=== PATIENT | female | born 1955 | race Caucasian/White ===

== ENCOUNTER → 2017-06-29 | Outpatient (CLI) | payer OTHER | LOC: BMCIMAGING 14:27 | PROVIDERS: ATTEND Family Medicine | DX: Z12.31 Encounter for screening mammogram for malignant neoplasm of breast (principal); Z80.3 Family history of malignant neoplasm of breast | CPT/HCPCS: G0202 ==

== ENCOUNTER → 2017-10-28 | Outpatient (CLI) | payer OTHER | LOC: BMCIMAGING 12:43 | PROVIDERS: ATTEND Neurological Surgery | DX: M21.752 Unequal limb length (acquired), left femur (principal); M16.11 Unilateral primary osteoarthritis, right hip; M51.36 Other intervertebral disc degeneration, lumbar region; M51.37 Other intervertebral disc degeneration, lumbosacral region; M46.96 Unspecified inflammatory spondylopathy, lumbar region; M46.97 Unspecified inflammatory spondylopathy, lumbosacral region ==

== ENCOUNTER → 2018-04-07 | Outpatient (CLI) | payer OTHER | LOC: BMCIMAGING 12:53 | PROVIDERS: ATTEND Family Medicine | DX: Z12.31 Encounter for screening mammogram for malignant neoplasm of breast (principal); C53.9 Malignant neoplasm of cervix uteri, unspecified; Z80.3 Family history of malignant neoplasm of breast ==

== ENCOUNTER → 2018-04-28 | Outpatient (CLI) | payer OTHER | LOC: BMCIMAGING 13:16 | PROVIDERS: ATTEND Family Medicine | DX: Z13.820 Encounter for screening for osteoporosis (principal); M81.0 Age-related osteoporosis without current pathological fracture ==

== ENCOUNTER → 2018-06-09 | Outpatient (CLI) | payer OTHER | LOC: BMCIMAGING 13:38 | PROVIDERS: ATTEND Physician Assistant | DX: M17.12 Unilateral primary osteoarthritis, left knee (principal); M25.462 Effusion, left knee ==

== ENCOUNTER → 2018-07-12 | Outpatient (CLI) | payer OTHER | LOC: FIMAGING 11:26 | PROVIDERS: ATTEND Orthopaedic Surgery | DX: Z01.818 Encounter for other preprocedural examination (principal); M17.12 Unilateral primary osteoarthritis, left knee ==

== ENCOUNTER 2018-08-07 09:13 | Observation (INO) | payer OTHER ==
--- NOTE | 2018-08-07 06:37 | PDHPUP ---
History & Physical Update H&P update statement: This history and physical update is based on an assessment of the patient which was completed after admission or registration (within 24 hours), but prior to the surgery/procedure. H&P update: no change in patient's condition since H&P completed
--- NOTE | 2018-08-07 06:37 | PDIAF ---
- Diagnosis Diagnosis: left knee djd Code Status: Full Code - Medication Management Discharge Medications: Medications to Continue on Transfer Acyclovir [Zovirax 200 mg (*)] 200 mg PO Q4H PRN 06/30/18 [Last Taken Unknown] Alendronate Sodium [Fosamax 70 MG (*)] 70 mg PO WE@0700 06/30/18 [Last Taken Unknown] Atorvastatin Calcium [Lipitor 20 mg (*)] 20 mg PO DAILY 06/30/18 [Last Taken Unknown] Bupropion HCl [Bupropion HCl Sr] 150 mg PO BID 06/30/18 [Last Taken Unknown] Cholecalciferol (Vitamin D3) [Vitamin D3] 2,000 unit PO DAILY 06/30/18 [Last Taken Unknown] Gabapentin [Neurontin 300 MG (*)] 300 mg PO TID 06/30/18 [Last Taken Unknown] Herbals/Supplements -Info Only 1 ea PO DAILY 06/30/18 [Last Taken Unknown] Multivitamins [Multivitamin (*)] 1 each PO DAILY 06/30/18 [Last Taken Unknown] Naproxen Sodium [Aleve 220 MG (*)] 440 mg PO DAILY PRN 06/30/18 [Last Taken Unknown] Vitamin B Complex [Vitamin B Complex (OTC)] 1 each PO DAILY 06/30/18 [Last Taken Unknown] Discharge Medications: Refer to the Discharge Home Medication list for PRN reason. - Orders Services needed: Home Care, Physical Therapy Home Care Face to Face: I certify that this patient was under my care and that I had the required nirt-aj-cfyd encounter meeting the encounter requirements on the discharge day. My findings support the fact that the patient is homebound as defined in Home Care Face to Face Continued: CMS Chapter 7 Medicare Benefits Manual 30.1.1 , The condition of the patient is such that there exists a normal inability to leave home and consequently, leaving home would require a considerable and taxing effort. Diet Recommendation: no restrictions on diet Diet Texture: Regular Texture Diet Additional Instructions: TOTAL JOINT ARTHROPLASTY DISCHARGE INSTRUCTIONS 1. Your surgeon follows the [facility] protocol for reducing your risk of DVT (blood clots) following surgery. Medication will be ordered to prevent blood clots. A sudden increase in calf pain and/or swelling could indicate a blood clot in your leg. If this occurs, please call your surgeon or his/her graphic design assistant. An ultrasound of the leg may be necessary to diagnose a blood clot. If you have conditions that make you a higher risk for blood clots, your surgeon may use more aggressive ways to prevent them. Notify your surgeon if you think you are a high risk for blood clots. 2. Wear your white surgical stockings (DEONNA hose) for 2 weeks. This decreases your swelling and may help prevent blood clots. It is ok to remove DEONNA hose at night time to give your legs a break. 3. Swelling and bruising in the surgical leg is common. If you feel that it is excessive, please notify your surgeon. 4. Elevate your surgical leg with the ankle above the hip several times every day. Please keep the leg straight when you elevate by putting pillows under your foot. Do not put pillows under your knee. This will make being able to fully straighten more difficult. This is uncomfortable, but try to do it as much as possible. 5. For total knee replacements use compressive wrap on your knee for 3-5 days after surgery, then you can discontinue it. 6. Use a walker or crutches for 1-2 weeks. Progress your weight-bearing as tolerated. You may start to use a cane when you feel stable and safe. 7. You will receive physical therapy instructions in the hospital. Continue those exercises at home. There are additional exercises in the total joint booklet you were given before surgery. Outpatient physical therapy will begin 7- 10 days after surgery. Please schedule this in advance. 8. Use ice on your knee at least 3-5 times every day for 30 minutes. This helps reduce pain and swelling. Also use it at night before falling asleep. 9. Leave your surgical dressing in place for 2 weeks. Your dressing is water resistant, but not waterproof. Cover it with Saran Wrap or Qongg-n-Dwgd before showering. You may shower as soon as you feel safe entering a shower. If you notice bleeding from your incision 2 or 3 days after surgery, please notify your surgeon. 10. Due to narcotics, decreased activity and altered diet, most patients experience constipation after surgery. Use vraz-wku-bcznzij stool softeners while you are on narcotics. 11. You may drive a car when you are comfortable bearing weight, have good muscular control of your leg and are off narcotics. This usually occurs 2-4 weeks after surgery, depending on which leg was operated on. 12. If there are questions not addressed here, please refer the [facility] book given for more information. If you still have questions, please contact your surgeon s office. 13. If you have a life-threatening emergency, please call 911 and go to the emergency room immediately. For non-life threatening emergencies, please call your physicians office for advice before going to the emergency room. - Follow Up Care Current Providers and Referrals: MADDIE MAYO [Primary Care Provider] - Emmett Gamez MD [Medical Doctor] -
[~2018-08-07 09:13] MED LIST: ROPIVACAINE 0.2% 80 MG, EPINEPHrine 0.2 MG, KETOROLAC TROMETHAMINE 30 MG, morphINE 10 M... IU ONE; TRANEXAMIC ACID 1,000 MG in NS 100 ML IV ONE; VANCOMYCIN 1 GM in NS 250 ML IV ONE; VANCOMYCIN HCL/NORMAL SALINE 250 ML IV ONE; VANCOMYCIN PHARMACY TO DOSE MISC ONE
[2018-08-07] MEDS ORDERED: FAMOTIDINE 20 MG TAB PO ONE (09:21)
[2018-08-07] MEDS ORDERED: ACETAMINOPHEN 325 MG TAB PO ONE (09:21)
[2018-08-07] MEDS ORDERED: LIDOCAINE 1% 2 ML INJ ID PRN (09:22)
[2018-08-07] MEDS ORDERED: LR 1,000 ML IV ONE (09:22)
--- NOTE | 2018-08-07 10:17 | POSTANESTH ---
Post Anesthetic Evaluation Cardiovascular Status: Normal, Stable Respiratory Status: Normal, Stable Level of Consciousness/Mental Status: Can Participate in Eval, Alert and Oriented Pain Control: Adequate, Prn Tx Ordered Nausea/Vomiting Control: Adequate, Prn Tx Ordered Complications Possibly Related to Anesthesia: None Noted (L AC block placed on arrival to PACU PSR for POPC. U/S guidance utilized.)
--- NOTE | 2018-08-07 10:20 | PDANEPAE ---
ANE History of Present Illness 63 yo female with L knee OA for L TKA. 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 basal cell CA removed from nose, 2016 - Congenital Disorder History Hx Congenital Disorders: No - GI History Hx Gastrointestinal Disorders: No - Chronic Pain History Chronic Pain: Yes (back pain due to curvture, gabapentin helps) - Surgical History Prior Surgeries: Right & left ankle surgeries, 1997. ACL & meniscus repair on Left, 2002. Hysterectomy w/bladder tuck, 2005 ANE Review of Systems Review of systems is: negative Review of Systems: - Exercise capacity METS (RN): 4 METS ANE Patient History - Allergies Allergies/Adverse Reactions: Penicillins Allergy (Verified 07/04/18 14:35) SEIZURE A KID - Home Medications Home Medications: Acyclovir [Zovirax 200 mg (*)] 200 mg PO Q4H PRN 06/30/18 [Last Taken 1 Day Ago ~08/06/18] Alendronate Sodium [Fosamax 70 MG (*)] 70 mg PO WE@0700 06/30/18 [Last Taken ] Atorvastatin Calcium [Lipitor 20 mg (*)] 20 mg PO DAILY 06/30/18 [Last Taken 1 Day Ago ~08/06/18] Bupropion HCl [Bupropion HCl Sr] 150 mg PO BID 06/30/18 [Last Taken 08/07/18 04: 00] Cholecalciferol (Vitamin D3) [Vitamin D3] 2,000 unit PO DAILY 06/30/18 [Last Taken 2 Weeks Ago ~07/24/18] Gabapentin [Neurontin 300 MG (*)] 300 mg PO TID 06/30/18 [Last Taken 08/07/18 04 :00] Herbals/Supplements -Info Only 1 ea PO DAILY 06/30/18 [Last Taken 2 Weeks Ago ~ 07/24/18] Multivitamins [Multivitamin (*)] 1 each PO DAILY 06/30/18 [Last Taken 2 Weeks Ago ~07/24/18] Naproxen Sodium [Aleve 220 MG (*)] 440 mg PO DAILY PRN 06/30/18 [Last Taken 1 Week Ago ~07/31/18] Vitamin B Complex [Vitamin B Complex (OTC)] 1 each PO DAILY 06/30/18 [Last Taken 2 Weeks Ago ~07/24/18] - NPO status NPO Since - Liquids (Date): 08/06/18 NPO Since - Liquids (Time): 04:00 NPO Since - Solids (Date): 08/06/18 NPO Since - Solids (Time): 16:00 - Anes Hx Anes Hx: post operative nausea Hx Anesthesia Complications (with details): mild nausea - Smoking Hx Smoking Status: Former smoker - Family Anes Hx Family Anes Hx: neg - N/A Family Hx Anesthesia Complications: none ANE Labs/Vital Signs - Labs - BMP Creatinine: 1.04 - Vital Signs Blood Pressure: 153/87 Heart Rate: 65 Respiratory Rate: 16 O2 Sat (%): 99 Height: 165.1 cm Weight: 65.771 kg ANE Physical Exam - Airway Neck exam: FROM Mallampati Score: Class 2 Mouth exam: normal dental/mouth exam - Pulmonary Pulmonary: clear to auscultation - Cardiovascular Cardiovascular: regular rate and rhythym - ASA Status ASA Status: II ANE Anesthesia Plan Anesthesia Plan: spinal Regional Anesthesia: adductor canal FNB, POPC/PSR
[2018-08-07] MEDS ORDERED: THROMBIN (BOVINE) 5,000 UNIT VIAL TP ONE (11:08)
[2018-08-07] MEDS ORDERED: ceFAZolin 1 GM/5 ML SYR ONE (11:08)
[2018-08-07] MEDS ORDERED: CALCIUM CHLORIDE 1 GM/10 ML INJ ONE (11:08)
[2018-08-07] MEDS ORDERED: BUPIVACAINE/DEXTROSE 7.5MG/ML 2 ML SPINAL AMP SP ONE (11:36)
[2018-08-07] MEDS ORDERED: LIDOCAINE 2% 2 ML INJ ONE (11:36)
[2018-08-07] MEDS ORDERED: fentaNYL 100 MCG/2 ML INJ ONE ×2 (11:37→13:42)
[2018-08-07] MEDS ORDERED: PROPOFOL/EMULSION 500 MG/50 ML BOTTLE IV ONE (11:37)
[2018-08-07] MEDS ORDERED: ONDANSETRON 4 MG/2 ML VIAL ONE (12:23)
[2018-08-07] MEDS ORDERED: DEXAMETHASONE 4 MG/ML VIAL ONE ×2 (12:24)
[2018-08-07] MEDS ORDERED: ROPIVACAINE HCL 150 MG/30 ML INJ ONE (12:46)
[2018-08-07] MEDS ORDERED: fentaNYL 100 MCG/2 ML INJ IVP PRN (13:04)
[2018-08-07] MEDS ORDERED: LR 500 ML IV PRN (13:04)
[2018-08-07] MEDS ORDERED: ALBUTEROL 3 ML DEYVIAL IH PRN (13:04)
[2018-08-07] MEDS ORDERED: oxyCODONE IR 5 MG TAB PO PRN ×2 (13:04→13:07)
[2018-08-07] MEDS ORDERED: PROMETHAZINE HCL 25 MG/ML INJ IVP PRN ×2 (13:04→13:07)
[2018-08-07] MEDS ORDERED: ACETAMINOPHEN 500 MG TAB PO PRN (13:04)
[2018-08-07] MEDS ORDERED: NALOXONE HCL 0.4 MG/ML INJ IVP PRN (13:04)
[2018-08-07] MEDS ORDERED: ONDANSETRON DISINTEGRATING 4 MG TAB PO PRN (13:07)
[2018-08-07] MEDS ORDERED: METOCLOPRAMIDE 10 MG/2 ML VIAL IVP PRN (13:07)
[2018-08-07] MEDS ORDERED: BISACODYL 10 MG SUPP PR PRN (13:07)
[2018-08-07] MEDS ORDERED: LACTULOSE 20 GM/30 ML UDCUP PO PRN (13:07)
[2018-08-07] MEDS ORDERED: DIPHENOXYLATE/ATROPINE LOMOTIL 1 TAB PO PRN (13:07)
[2018-08-07] MEDS ORDERED: TEMAZEPAM 15 MG CAP PO PRN (13:07)
[2018-08-07] MEDS ORDERED: diphenhydrAMINE 25 MG CAP PO PRN (13:07)
[2018-08-07] MEDS ORDERED: CYCLOBENZAPRINE 10 MG TAB PO PRN (13:07)
[2018-08-07] MEDS ORDERED: MAGNESIUM HYDROXIDE 30 ML UDCUP PO PRN (13:07)
[2018-08-07] MEDS ORDERED: PROMETHAZINE HCL 25 MG SUPPR PR PRN (13:07)
[2018-08-07] MEDS ORDERED: ONDANSETRON 4 MG/2 ML VIAL IVP PRN (13:07)
[2018-08-07] MEDS ORDERED: POLYETHYLENE GLYCOL 3350 17 GM PKT PO PRN (13:07)
--- NOTE | 2018-08-07 13:07 | POSTOPPROG ---
Post Op Note Date of Operation: 08/07/18 Surgeon: Emmett Gamez Wet Wheeler: david Anesthesiologist: claudio Anesthesia: Spinal Pre-op Diagnosis: left knee djd Post-op Diagnosis: same Indication: same Procedure: left tka Inf/Abcess present in the surg proc area at time of surgery?: No Depth: Deep Incisional (Fascial) EBL: 100-500
[2018-08-07] MEDS ORDERED: ACYCLOVIR 200 MG CAP PO PRN (13:08)
[2018-08-07] MEDS ORDERED: LR 1,000 ML IV SCH (13:30)
[2018-08-07] MEDS: GABAPENTIN 300 MG CAP PO SCH ×2 (16:58→21:11)
[2018-08-07] MEDS: ACETAMINOPHEN 325 MG TAB PO SCH (16:58)
--- NOTE | 2018-08-07 19:17 | GOP ---
DATE OF OPERATION: 08/07/2018 SURGEON: Emmett Gamez MD CARE ADMINISTRATIVE TECH: Denys Cardoso, UNDERCOAT SPRAYER, [facility], who was a medical necessity for the entirety of the case. PREOPERATIVE DIAGNOSIS: Left knee degenerative joint disease. POSTOPERATIVE DIAGNOSIS: Left knee degenerative joint disease. PROCEDURE PERFORMED: Left total knee arthroplasty, MAKOplasty. FINDINGS: SPECIMENS: The bony cuts. INDICATIONS: This is a 63-year-old woman with end-stage arthritis to her left knee. Clinical and ra diographic features are consistent with this. She has failed all attempts at conservative management . I have recommended operative intervention and she wishes to proceed. DESCRIPTION OF PROCEDURE: The patient was identified in the preanesthesia area. The left knee clear ly demarcated as operative site with indelible marker. She was given vancomycin 1 g IV en route to [facility] operative suite. In the OR a spinal anesthetic was placed. She was positioned in the supine posi tion. The left knee and lower extremity were sterilely prepped and draped in usual fashion. A tourn iquet was applied to the upper thigh. Appropriate time-out procedure was carried out. The limb was exsanguinated with Esmarch bandage. Tourniquet inflated to 275 mmHg. Standard anterior midline inci jason was made. Thick subcutaneous flaps were elevated followed by medial parapatellar arthrotomy. S ubperiosteal elevation was carried out to the mid coronal plane and retractors placed. The knee demo nstrated tricompartmental arthritis. Decision was made to proceed with operative intervention with k nee replacement. Two pins were then placed from medial to lateral across the distal femur and the fe moral reference array affixed followed by femoral check point, separate percutaneous incision was mad e in the mid tibia. Two pins were then placed followed by the tibial check point. All bony landmark s were entered into the computer in standard fashion. The knee was balanced with soft tissue release , removal of the osteophytes and adjustment of the components using the MAKOplasty software. Using [facility] MAKOplasty robot, resections were made for a size 3 femur, size 3 tibia, and ultimately a 3 x 11 m m thick polyethylene spacer was selected as the final implant. Trial reduction was carried out with the trial components. This allowed full extension and flexion of the knee with no instability to roselia us or valgus stress throughout the flexion-extension arc. The trial components were withdrawn in a s equential fashion. The tibial and femoral components were press-fit and a 3 x 11 mm polyethylene spa cer was placed, confirmed to be fully seated. The knee was brought to full extension. Stability pro file was once again reassured that there is no instability with varus or valgus stress through the fl exion-extension arc. The patella was then everted, cut in a freehand cutting technique. Drill holes were made for a size 32 mm patella and a 32 mm press fit patella was then placed, confirmed to be fu lly seated. The knee cap tracked centrally through the flexion-extension arc. The wound was copious ly irrigated. The capsule and tissues injected with a joint cocktail of ropivacaine, morphine, Torad ol, and epinephrine. The medial parapatellar arthrotomy closed using #1 Ethibond suture. The knee i nstilled with a joint cocktail and platelet-rich plasma. Subcutaneous tissue closed using 2-0 Monocr yl. The skin was closed using a zip line skin closure and sterile dressing overlying this with an Ac e wrap. The patient was awakened, extubated, taken to recovery room in good stable condition. TOTAL TOURNIQUET TIME: 50 minutes. COMPLICATIONS: None. IMPLANTS: The Joanne triathlon posterior stabilized femoral component size 3, tibial bearing insert , size 3, 3 x 11 mm polyethylene spacer and a 32 mm press-fit patella. DISPOSITION: To the recovery room, then the floor. She is weightbearing, range of motion as tolerat ed. /[id number]/MODL
[2018-08-07] MEDS: SENNOSIDES/DOCUSATE SODIUM TAB PO SCH (21:11)
[2018-08-07] MEDS: buPROPion SR 150 MG TAB PO SCH (21:11)
[2018-08-07] MEDS: TRANEXAMIC ACID 650 MG TAB PO SCH (21:11)
[2018-08-07] MEDS: FAMOTIDINE 20 MG TAB PO SCH (21:11)
[2018-08-07] MEDS: ASPIRIN 325 MG TAB PO SCH (21:15)
[2018-08-08] MEDS: ACETAMINOPHEN 325 MG TAB PO SCH ×2 (00:14→05:39)
[2018-08-08] MEDS: TRANEXAMIC ACID 650 MG TAB PO SCH (05:39)
--- NOTE | 2018-08-08 07:24 | PDIAF ---
- Diagnosis Diagnosis: left knee djd Code Status: Full Code - Medication Management Discharge Medications: Medications to Continue on Transfer Acyclovir [Zovirax 200 mg (*)] 200 mg PO Q4H PRN 06/30/18 [Last Taken 1 Day Ago ~08/06/18] Alendronate Sodium [Fosamax 70 MG (*)] 70 mg PO WE@0700 06/30/18 [Last Taken ] Atorvastatin Calcium [Lipitor 20 mg (*)] 20 mg PO DAILY 06/30/18 [Last Taken 1 Day Ago ~08/06/18] Bupropion HCl [Bupropion HCl Sr] 150 mg PO BID 06/30/18 [Last Taken 08/07/18 04: 00] Cholecalciferol (Vitamin D3) [Vitamin D3] 2,000 unit PO DAILY 06/30/18 [Last Taken 2 Weeks Ago ~07/24/18] Gabapentin [Neurontin 300 MG (*)] 300 mg PO TID 06/30/18 [Last Taken 08/07/18 04 :00] Herbals/Supplements -Info Only 1 ea PO DAILY 06/30/18 [Last Taken 2 Weeks Ago ~ 07/24/18] Multivitamins [Multivitamin (*)] 1 each PO DAILY 06/30/18 [Last Taken 2 Weeks Ago ~07/24/18] Vitamin B Complex [Vitamin B Complex (OTC)] 1 each PO DAILY 06/30/18 [Last Taken 2 Weeks Ago ~07/24/18] Aspirin [Aspirin 325 mg (*)] 325 mg PO DAILY tab 08/08/18 [Last Taken Unknown] oxyCODONE IR [Oxycodone Ir (*)] 5 - 10 mg PO Q3HRS PRN #50 tab 08/08/18 [Last Taken Unknown] Discharge Medications: Refer to the Discharge Home Medication list for PRN reason. - Orders Services needed: Home Care, Physical Therapy Home Care Face to Face: I certify that this patient was under my care and that I had the required uwew-yx-jkfa encounter meeting the encounter requirements on the discharge day. My findings support the fact that the patient is homebound as defined in Home Care Face to Face Continued: CMS Chapter 7 Medicare Benefits Manual 30.1.1 , The condition of the patient is such that there exists a normal inability to leave home and consequently, leaving home would require a considerable and taxing effort. Diet Recommendation: no restrictions on diet Diet Texture: Regular Texture Diet Additional Instructions: TOTAL JOINT ARTHROPLASTY DISCHARGE INSTRUCTIONS 1. Your surgeon follows the [facility] protocol for reducing your risk of DVT (blood clots) following surgery. Medication will be ordered to prevent blood clots. A sudden increase in calf pain and/or swelling could indicate a blood clot in your leg. If this occurs, please call your surgeon or his/her operator/assistant foreman. An ultrasound of the leg may be necessary to diagnose a blood clot. If you have conditions that make you a higher risk for blood clots, your surgeon may use more aggressive ways to prevent them. Notify your surgeon if you think you are a high risk for blood clots. 2. Wear your white surgical stockings (DEONNA hose) for 2 weeks. This decreases your swelling and may help prevent blood clots. It is ok to remove DEONNA hose at night time to give your legs a break. 3. Swelling and bruising in the surgical leg is common. If you feel that it is excessive, please notify your surgeon. 4. Elevate your surgical leg with the ankle above the hip several times every day. Please keep the leg straight when you elevate by putting pillows under your foot. Do not put pillows under your knee. This will make being able to fully straighten more difficult. This is uncomfortable, but try to do it as much as possible. 5. For total knee replacements use compressive wrap on your knee for 3-5 days after surgery, then you can discontinue it. 6. Use a walker or crutches for 1-2 weeks. Progress your weight-bearing as tolerated. You may start to use a cane when you feel stable and safe. 7. You will receive physical therapy instructions in the hospital. Continue those exercises at home. There are additional exercises in the total joint booklet you were given before surgery. Outpatient physical therapy will begin 7- 10 days after surgery. Please schedule this in advance. 8. Use ice on your knee at least 3-5 times every day for 30 minutes. This helps reduce pain and swelling. Also use it at night before falling asleep. 9. Leave your surgical dressing in place for 2 weeks. Your dressing is water resistant, but not waterproof. Cover it with Saran Wrap or Pphti-p-Zdkw before showering. You may shower as soon as you feel safe entering a shower. If you notice bleeding from your incision 2 or 3 days after surgery, please notify your surgeon. 10. Due to narcotics, decreased activity and altered diet, most patients experience constipation after surgery. Use eyxw-dax-dhsumpg stool softeners while you are on narcotics. 11. You may drive a car when you are comfortable bearing weight, have good muscular control of your leg and are off narcotics. This usually occurs 2-4 weeks after surgery, depending on which leg was operated on. 12. If there are questions not addressed here, please refer the [facility] book given for more information. If you still have questions, please contact your surgeon s office. 13. If you have a life-threatening emergency, please call 911 and go to the emergency room immediately. For non-life threatening emergencies, please call your physicians office for advice before going to the emergency room. - Follow Up Care Current Providers and Referrals: MADDIE MAYO [Primary Care Provider] - Emmett Gamez MD [Medical Doctor] -
--- NOTE | 2018-08-08 07:25 | SOAPPROG ---
SOAP Progress Note Assessment/Plan: Assessment: s/p tka Plan:dvt precautions d/c home f/u at two weeks 08/08/18 07:24 Subjective: no cp or sob] cristina po no co Objective: Vital Signs Temp Pulse Resp BP Pulse Ox 36.6 C 65 16 98/53 L 95 08/08/18 05:15 08/08/18 05:15 08/08/18 05:15 08/08/18 05:15 08/08/18 05:15 Laboratory Results 08/08/18 04:10 08/07/18 08/08/18 08/09/18 05:59 05:59 05:59 Intake Total 1170 Output Total 820 Balance 350 dressing intact intact pf, df , ehl toes warm and pink neg homans alisson xrays stable anatomic alignment, no fx or lucenc\y ICD10 Worksheet Patient Problems: Problems Problem Status Onset Arthritis of knee Acute - ICD10 Problem Qualifiers (1) Arthritis of knee
--- NOTE | 2018-08-08 07:45 | GDS ---
ADMISSION DIAGNOSIS: Left knee degenerative joint disease. DISCHARGE DIAGNOSIS: Left knee degenerative joint disease. PROCEDURE: Left total knee arthroplasty. HISTORY OF PRESENT ILLNESS: The patient is a 63-year-old woman with end-stage arthritis to her left knee. She presents today for elective total knee replacement. She understands the risks, benefits, alternatives, and wishes to proceed. HOSPITAL COURSE: Patient was admitted overnight after uncomplicated total knee arthroplasty. She to lerated the procedure well. She had no complications. At the time of discharge, she is tolerating a n oral diet. Pain is well controlled on oral medicines. She is voiding without difficulty. Dressin g is clean, dry, and intact. Negative Homans bilaterally. X-rays are stable with anatomic alignment . DISCHARGE MEDICATIONS: Oxycodone 5 mg 1-2 every 6 hours p.r.n. pain, aspirin 325 mg p.o. daily. FOLLOWUP: In 2 weeks. Seek attention for increasing redness, swelling, drainage, discharge, or othe r focal complaints. /[id number]/MODL
[2018-08-08] MEDS: FAMOTIDINE 20 MG TAB PO SCH (08:08)
[2018-08-08] MEDS: ASPIRIN 325 MG TAB PO SCH (08:08)
[2018-08-08] MEDS: SENNOSIDES/DOCUSATE SODIUM TAB PO SCH (08:08)
[2018-08-08] MEDS: GABAPENTIN 300 MG CAP PO SCH (08:09)
[2018-08-08] MEDS: buPROPion SR 150 MG TAB PO SCH (08:09)
[2018-08-08 08:36] VITALS: BP 146/70
[2018-08-08] MEDS ORDERED: Herbals/Supplements -Info Only PO SCH (09:00)
[2018-08-08] MEDS ORDERED: ATORVASTATIN CALCIUM 20 MG TAB PO SCH (09:00)
--- NOTE | 2018-08-08 11:01 | ASMTCMCOM ---
CM Note CM Note Notes: Pt s/p OA of knee. Pt medically stable for d/c with [facility]. Orders sent in [employer]. Pt address/phone verified. Date Signed: 08/08/2018 11:00 AM Electronically Signed By:THANG Cespedes
--- NOTE | 2018-08-08 11:01 | ASDISCHSUM ---
Discharge Information Plan Status:Home with Home Health Medically Cleared to Leave: Discharge Date:08/08/2018 10:55 AM CM D/C Disposition:Home Health Service ADT D/C Disposition:Home Health Service Projected Discharge Date:08/08/2018 11:00 AM Transportation at D/C: Discharge Delay Reason: Follow-Up Date:08/08/2018 11:00 AM Discharge Slot: Final Diagnosis: Placement Information Referral Type:*Home Health Care Services Referral ID:[id number] Provider Name:[facility] Address 1:[address] [place] [address] Address 2: City:[place] Selection Factors: State:[place] Patient Contact Information Contact Name:KO Relationship:Life Partner Address:[address] City:[place] Alternate Phone: State/Zip Code:[place] [address] Email: Financial Information Financial Class:Medicare Primary Plan Desc:MEDICARE INPATIENT Primary Plan Number:[id number] Secondary Plan Desc:[facility] Secondary Plan Number:[id number] Assessment Information LACE LACE Length of stay for Answers: 2 days current admission Acuity / Level of Answers: No Care: Did the patient have an inpatient admission? Comorbidities - select Answers: Opioid dependence all that apply / Chronic pain # of Emergency department Answers: 0 visits in the last 6 months Social determinants Answers: Mental health diagnosis (anxiety, depression, pers onality disorders, etc.) Score: 9 Date Signed: 08/08/2018 10:58 AM Electronically Signed By:THANG Cespedes [facility] CM Progress Note CM Note CM Note Notes: Pt s/p OA of knee. Pt medically stable for d/c with [facility]. Orders sent in [employer]. Pt address/phone verified. Date Signed: 08/08/2018 11:00 AM Electronically Signed By:THANG Cespedes Intervention Information Intervention Type:*Incorrect Registration Date of Service:08/07/2018 01:29 PM Patient Type:Inpatient Staff Member:Lindsay Hilton Hours: Discipline: Severity: Comment:
== END 2018-08-08 10:55 | disposition home health service (06) ==
LOC: INTOOBSV 09:13 → F3N 09:13
PROVIDERS: ADMIT Orthopaedic Surgery; ATTEND Orthopaedic Surgery
PROC: 0SRD0JZ Replacement of Left Knee Joint with Synthetic Substitute, Open Approach (ICD-10-PCS; principal; 2018-08-07 11:30)
PROC: 8E0YXCZ Robotic Assisted Procedure of Lower Extremity (ICD-10-PCS; principal; 2018-08-07 11:30)
DX: M17.12 Unilateral primary osteoarthritis, left knee (principal); E78.00 Pure hypercholesterolemia, unspecified; Z85.41 Personal history of malignant neoplasm of cervix uteri; Z85.820 Personal history of malignant melanoma of skin
CPT/HCPCS: 27447; 73560; 88311; 97110; 97116; 97161; 97165; 97535; C1776; G8978; G8979; G8980; G8987; G8988; G8989; J0171; J0690; J1100; J1885; J2270; J2405; J2704; J2795; J3010; J3370

== ENCOUNTER → 2019-02-06 | Outpatient (CLI) | payer OTHER | LOC: BMCIMAGING 10:41 | PROVIDERS: ATTEND Physician Assistant | DX: Z09 Encounter for follow-up examination after completed treatment for conditions other than malignant neoplasm (principal); Z96.652 Presence of left artificial knee joint ==